=== PATIENT | male | born 1950 | race Caucasian/White ===

== ENCOUNTER 2017-11-07 16:28 | Emergency (ER) | payer MEDICARE ==
[~2017-11-07] VITALS: Ht 180.3 cm; Wt 91.9 kg
[2017-11-07] MEDS ORDERED: EFAV1TAB PO (16:52)
[2017-11-07] MEDS ORDERED: PHENAZOPYRIDINE 200 MG TABLET PO ONE (17:00)
[2017-11-07 17:08] LABS: MICROSCOPIC INDICATED
[2017-11-07 17:12] LABS: CULTURE INDICATED? YES
[2017-11-07 17:16] LABS: BASOPHILS # (AUTO) 0.02 x10^3/uL (0-0.1); BASOPHILS % (AUTO) 0 % (0-1); EOSINOPHILS # (AUTO) 0.04 x10^3/uL (0-0.4); EOSINOPHILS % (AUTO) 1 % (1-7); LYMPHOCYTES # (AUTO) 1.45 x10^3/uL (1-3.4); LYMPHOCYTES % (AUTO) 19 % (22-44); MD NO; MEAN CORPUSCULAR HEMOGLOBIN 35.4 pg (27.5-34.5); MEAN CORPUSCULAR HGB CONC 34.6 g/dL (33.2-36.2); MEAN CORPUSCULAR VOLUME 102.3 fL (81-97); MEAN PLATELET VOLUME 7.2 fL (7.4-10.4); MONOCYTES # (AUTO) 0.63 x10^3/uL (0.2-0.8); MONOCYTES % (AUTO) 8 % (2-9); NEUTROPHILS # (AUTO) 5.55 x10^3/uL (1.8-6.8); NEUTROPHILS % (AUTO) 72 % (42-75); PLATELET COUNT 254 x10^3/uL (130-400); RED BLOOD COUNT 5.04 x10^6/uL (4.38-5.82); RED CELL DISTRIBUTION WIDTH 13.6 % (9.4-14.8)
[2017-11-07 17:20] LABS: ALANINE AMINOTRANSFERASE 30 U/L (12-78); ALBUMIN 4.2 g/dL (3.4-5.0); ANION GAP 11 mmol/L (5-15); CALCIUM 8.8 mg/dL (8.5-10.1); CHLORIDE 108 mmol/L (98-107); CREATININE 0.93 mg/dL (0.7-1.3)
[2017-11-07 17:23] LABS: ALKALINE PHOSPHATASE 89 U/L (45-117); BILIRUBIN,TOTAL 0.6 mg/dL (0.2-1.0); TOTAL PROTEIN 7.6 g/dL (6.4-8.2)
[2017-11-07] MEDS ORDERED: LIDOCAINE 2%,20 ML JEL.PF.APP MM ONE (17:30)
[2017-11-07 19:10] VITALS: BP 125/88
[2017-11-07] MEDS ORDERED: FOLI0.4T52 PO (22:24)
[2017-11-07] MEDS ORDERED: OMNICEF PO (22:24)
[2017-11-07] MEDS ORDERED: TAMS-11 PO (22:24)
[2017-11-07] MEDS ORDERED: PHEN-418 PO (22:24)
== END 2017-11-07 19:12 | disposition home or self-care (01) ==
LOC: ED 18:21
DX: N40.1 Benign prostatic hyperplasia with lower urinary tract symptoms (principal); R33.8 Other retention of urine; F17.200 Nicotine dependence, unspecified, uncomplicated; Z21 Asymptomatic human immunodeficiency virus [HIV] infection status
CPT/HCPCS: 36415; 51702; 80053; 81001; 85025; 87086; 99284

== ENCOUNTER 2017-11-07 22:15 | Emergency (ER) | payer MEDICARE ==
[~2017-11-07] VITALS: Ht 180.3 cm; Wt 91.2 kg
[~2017-11-07 22:15] MED LIST: EFAV1TAB PO
[2017-11-07 22:17] VITALS: BP 138/94
[2017-11-07] MEDS ORDERED: FOLI0.4T52 PO (22:24)
[2017-11-07] MEDS ORDERED: PHEN-418 PO (22:24)
[2017-11-07] MEDS ORDERED: OMNICEF PO (22:24)
[2017-11-07] MEDS ORDERED: TAMS-11 PO (22:24)
== END 2017-11-07 23:32 | disposition home or self-care (01) ==
LOC: ED 23:22
DX: T83.091A Other mechanical complication of indwelling urethral catheter, initial encounter (principal); R33.9 Retention of urine, unspecified; F17.200 Nicotine dependence, unspecified, uncomplicated; Z21 Asymptomatic human immunodeficiency virus [HIV] infection status; Y84.8 Other medical procedures as the cause of abnormal reaction of the patient, or of later complication, without mention of misadventure at the time of the procedure; Y92.89 Other specified places as the place of occurrence of the external cause
CPT/HCPCS: 51700; 99284

== ENCOUNTER 2017-11-08 09:43 | Emergency (ER) | payer MEDICARE ==
[~2017-11-08] VITALS: Ht 180.3 cm; Wt 91.4 kg
[~2017-11-08 09:43] MED LIST changes: +FOLI0.4T52 PO; +OMNICEF PO; +PHEN-418 PO; +TAMS-11 PO
[2017-11-08 09:47] VITALS: BP 130/85
== END 2017-11-08 11:30 | disposition home or self-care (01) ==
LOC: ED 10:28
DX: R33.9 Retention of urine, unspecified (principal); F17.200 Nicotine dependence, unspecified, uncomplicated; Z21 Asymptomatic human immunodeficiency virus [HIV] infection status
CPT/HCPCS: 99281; 99284

== ENCOUNTER 2018-03-24 19:06 | Emergency (ER) | payer MEDICARE ==
[~2018-03-24] VITALS: Ht 180.3 cm; Wt 91.1 kg
--- NOTE | 2018-03-24 20:07 | NUR ---
PT AMB W/ STEADY GAIT TO ROOM AT THIS TIME.
--- NOTE | 2018-03-24 20:09 | NUR ---
PT STATES INABILITY TO URINATE SINCE 1300 THIS PM W/ PROPER PO INTAKE. STATES BLADDER PAIN AND URGENCY TO GO AND UNABLE TO. STATES MULTIPLE RECENT VISITS TO UROLOGISTS W/ "NO HELP FROM THEM." PT DENIES ANY FURTHER GI/ SYMPTOMS. MONITORING APPLIED. VSS. CALL LIGHT WITHIN REACH. PT NOT WANTING LEO CATHETER. STATES "IT CAUSED TOO MUCH TROUBLE LAST TIME. I JUST WANT A CATHER IN THEN OUT. THIS RN TO TALK TO .
--- NOTE | 2018-03-24 20:15 | NUR ---
BLADDER SCAN SHOWS 680ML IN BLADDER. AWARE.
[2018-03-24 21:03] LABS: BASOPHILS # (AUTO) 0.01 x10^3/uL (0-0.1); BASOPHILS % (AUTO) 0 % (0-1); EOSINOPHILS # (AUTO) 0.01 x10^3/uL (0-0.4); EOSINOPHILS % (AUTO) 0 % (1-7); LYMPHOCYTES # (AUTO) 1.08 x10^3/uL (1-3.4); LYMPHOCYTES % (AUTO) 10 % (22-44); MD NO; MEAN CORPUSCULAR HEMOGLOBIN 34.1 pg (27.5-34.5); MEAN CORPUSCULAR HGB CONC 33.4 g/dL (33.2-36.2); MEAN CORPUSCULAR VOLUME 101.9 fL (81-97); MEAN PLATELET VOLUME 7.4 fL (7.4-10.4); MONOCYTES # (AUTO) 0.66 x10^3/uL (0.2-0.8); MONOCYTES % (AUTO) 6 % (2-9); NEUTROPHILS # (AUTO) 9.51 x10^3/uL (1.8-6.8); NEUTROPHILS % (AUTO) 84 % (42-75); PLATELET COUNT 272 x10^3/uL (130-400); RED BLOOD COUNT 5.06 x10^6/uL (4.38-5.82); RED CELL DISTRIBUTION WIDTH 13.5 % (9.4-14.8)
[2018-03-24 21:09] LABS: ALBUMIN 4.2 g/dL (3.4-5.0); ANION GAP 8 mmol/L (5-15); CHLORIDE 107 mmol/L (98-107); CREATININE 1.02 mg/dL (0.7-1.3)
[2018-03-24] MEDS ORDERED: ONDANSETRON 2MG/ML, 2ML IVPush ONE (21:30)
[2018-03-24] MEDS ORDERED: SODIUM CHLORIDE FLUSH 10ML SYR IVF ONE (21:30)
[2018-03-24] MEDS ORDERED: HYDROmorphone 2 MG/ML, 1ML IVPush PRN (21:30)
--- NOTE | 2018-03-24 21:32 | NUR ---
THIS RN ATTEMPTED TO PLACE CATHETER MULTIPLE TIMES W/ NO SUCCESS. MD AWARE. UROLOGY AWARE AND TO ATTEMPT TO PLACE CATH.
[2018-03-24] MEDS ORDERED: ONDANSETRON 2MG/ML, 2ML ONE (21:38)
[2018-03-24] MEDS ORDERED: HYDROmorphone 1 MG/ML, 1ML ONE (21:39)
[2018-03-24 21:49] VITALS: BP 148/80
--- NOTE | 2018-03-24 22:14 | NUR ---
UROLOGY AT BEDSIDE.
--- NOTE | 2018-03-24 22:51 | NUR ---
PT GIVEN LEG BAG AND CATH TEACHING AT THIS TIME.
== END 2018-03-24 23:00 | disposition home or self-care (01) ==
LOC: ED 22:54
DX: N40.0 Benign prostatic hyperplasia without lower urinary tract symptoms (principal)
CPT/HCPCS: 36415; 51703; 80048; 82040; 85025; 96374; 96375; 99284; J1170; J2405; 52000

== ENCOUNTER 2018-04-16 22:56 | Emergency (ER) | payer MEDICARE ==
[~2018-04-16] VITALS: Ht 180.3 cm; Wt 88.4 kg
--- NOTE | 2018-04-17 00:03 | NUR ---
PT PRESENTS TO ED WITH C/O INABILITY TO VOID X SEVERAL HRS. PT HAS HX BPH WITH NEED FOR LEO IN PAST. PT BLADDER SCANNED PRIOR TO LEO INSERTION, RESIDUAL PRIOR TO INSERTION READ >675ML. PT CLEANSED WITH THERAWORX PRIOR TO LEO INSETION. LEO CATH INSERTED, STERILE TECHNIQUE MAINTAINED, INSERTION OBSERVED BY CHAIM APPLE. APPROX 700ML DRAINED SO FAR. PT TOLERATED WELL. URINE SENT TO LAB. REPORT GIVEN TO CHAIM YIN.
--- NOTE | 2018-04-17 00:18 | NUR ---
FLOAT RN: PT RESTING IN ROOM. ISAI POZO DISTRESS NOTED. CALL LIGHT IN PLACE. WILL CONTINUE TO MONITOR WHILE PRIMARY RN IS ON BREAK.
[2018-04-17 00:24] LABS: MICROSCOPIC AUTO
[2018-04-17 00:32] LABS: CULTURE INDICATED? YES
[2018-04-17 02:06] VITALS: BP 118/76
--- NOTE | 2018-04-17 02:07 | NUR ---
PT INSTRUCTED ON LEO CARE AND SITE CLEANING. PT STATED HE KNOWS HOW TO CHANGE LEO BAGS HE HAS DONE IT MULTIPLE TIMES BEFORE. PT GIVEN A LEG BAG AND AN OVER NIGHT BAG. PT CURRENT LEO BAG EMPTIED BEFORE DCd. PT ASKED WHEN TO RETURN FOR LEO REMOVAL. PT INSTRUCTED TO FOLLOW UP WITH UROLOGIST. PT STATED HIS APPOINTMENT IS ON THE April WHICH IS TOO FAR OUT AND WILL WANT LEO REMOVED BEFORE HIS APPT. PT AGAIN INSTRUCTED TO FOLLOW UP WITH UROLOGY FOR RECOMMENDATIONS ON LEO REMOVAL.
== END 2018-04-17 02:02 | disposition home or self-care (01) ==
LOC: ED 23:35
DX: N40.1 Benign prostatic hyperplasia with lower urinary tract symptoms (principal); R33.8 Other retention of urine; N30.00 Acute cystitis without hematuria
CPT/HCPCS: 51702; 81001; 87086; 99284

== ENCOUNTER 2018-04-17 11:39 | Emergency (ER) | payer MEDICARE ==
[~2018-04-17] VITALS: Ht 180.3 cm; Wt 87.0 kg
[2018-04-17 11:49] VITALS: BP 143/95
--- NOTE | 2018-04-17 12:49 | NUR ---
LEO REMOVED AND PT WAS ABLE TO URINATE POST REMOVAL. PT TO BE D/C'ED
== END 2018-04-17 12:51 | disposition home or self-care (01) ==
LOC: ED 12:45
DX: T83.038A Leakage of other urinary catheter, initial encounter (principal); Z46.6 Encounter for fitting and adjustment of urinary device; F17.200 Nicotine dependence, unspecified, uncomplicated
CPT/HCPCS: 99281; 99284